=== PATIENT | female | born 1955 | race Caucasian/White ===

== ENCOUNTER → 2019-06-18 | Outpatient (CLI) | payer MEDICARE, OTHER | LOC: COL.RAD 06:33 | DX: R10.13 Epigastric pain (principal) | CPT/HCPCS: A9541 ==

== ENCOUNTER → 2019-07-24 | Outpatient (CLI) | payer MEDICARE, OTHER | LOC: COL.RAD 07:00 | DX: K76.0 Fatty (change of) liver, not elsewhere classified (principal) ==

== ENCOUNTER → 2019-09-01 | Outpatient (CLI) | payer MEDICARE, OTHER | LOC: COL.RAD 09:49 | DX: K21.9 Gastro-esophageal reflux disease without esophagitis (principal) ==

== ENCOUNTER 2020-10-12 05:37 | Day surgery (SDC) | payer MEDICARE, OTHER ==
[~2020-10-12] VITALS: Ht 167.6 cm; Wt 67.7 kg
[2020-10-12] VITALS (12 sets, daily range): BP systolic 98–131; BP diastolic 52–70; PULSE 57–73; TEMP 97–98.8
[2020-10-12] MEDS ORDERED: TENORMIN 2525 MG/TAB PO (06:02)
[2020-10-12] MEDS ORDERED: AMITRIPTYLINE H10 M1 PO (06:04)
--- NOTE | 2020-10-12 06:45 | NUR ---
Dr. Womack was notified that the patient does not have an H&P on their chart for surgery. He verbalized understanding of the information given and will print one to bring in for surgery.
[2020-10-12] MEDS ORDERED: COLACE 100100 MG/CAP PO (07:35)
[2020-10-12] MEDS ORDERED: NORCO 325 MG-51 TAB PO (07:36)
--- NOTE | 2020-10-12 11:20 | NUR ---
PATIENT ADMITED INTO ROOM 328 POST OP. ORIENTED BUT VERY DROWSY. VSS. NO C/O PAIN OR NAUSEA. ABD LAP SITES X5 ARE CD&I. ABD IS ROUND, SOFT, AND WITH POSITIVE BOWL SOUNDS. MALIK TO DD. MESH PANTIES & JOSE PAD INPLACE. IV FLUIDS INFUSING INTO LEFT HAND IV. HEAD TO TOE ASSESSMENT COMPLETE. SCD'S TO BLE. CALL LIGHT IN REACH. PATIENT SLEEPING.
--- NOTE | 2020-10-12 17:12 | NUR ---
Patient has been having complaints of dizziness since coming back from surgery. Nursing staff encouraging patient to rest, lay down and increase PO intake. Patient A&Ox3. VSS, post op VS monitored. Reported pain in abdomen, no pain medication requested. SCD bilateral legs. Lap sites CDI. No further needs expressed from the patient. Will continue to monitor for increased dizziness. Call light within reach
--- NOTE | 2020-10-12 21:00 | NUR ---
PT AMB IN [place] WITH MASK IN PLACE. ERAS PROCESS. ES TYLENOL GIVEN. VOIDING. IV SITE WRAPPED IN [place]. PT RELATES SHE IS RESTLESS AT HS. REPOSITIONS SELF FREQUENTLY. VSS. NO DRAINAGE FROM LP SITES. PAIN UNDER CONTROL. CALL LIGHT IN REACH. BED ALARM SET. SCD'S ON.
--- NOTE | 2020-10-12 23:43 | NUR ---
DC'D IVF NOW. INT NEEDLE FLUSHES WELL. AMBULATED EARLIER IN [facility]VI W/ SALES OPERATIONS SPECIALIST. USING IS WELL.
--- NOTE | 2020-10-13 02:30 | NUR ---
PT AWAKE. PT RELATED HEARD VOICES SHE THOUGHT IT WAS HER FAMILY. WENT TO DOOR. REALIZED SHE WAS IN THE HOSPITAL. TOOK HER A FEW MINUTES TO FIGURE IT OUT. WENT BACK TO BED. BED ALARM RESET. REMINDED PT TO CALL FOR ASSIST D/T MALIK CATHETER. PT AGREED. CALL LIGHT IN REACH.
[2020-10-13 04:01] VITALS: BP 116/58; PULSE 56; TEMP 97.9
--- NOTE | 2020-10-13 04:52 | NUR ---
PT RESTING. NO EVIDNECE OF PAIN.
[2020-10-13 07:55] VITALS: BP 97/62; PULSE 64; TEMP 98.1
--- NOTE | 2020-10-13 08:00 | NUR ---
PT A&O. VSS. HEAD TO TOE ASSESSMENT DONE, SEE NOTES. 5 ABDOMINAL SITES CD&I, NO DRESSING. PT MALIK IN PLACE PRODUCING CLEAR YELLOW URINE, MESH PANTIES AND PERIPAD IN PLACE. PT REPORTS PAIN, GAVE PRN NARCOTICS. ANSWERED ALL QUESTIONS. NO OTHER COMPLAINTS. PT SITTING IN BED. CALL LIGHT IN REACH.
--- NOTE | 2020-10-13 09:30 | NUR ---
DC'D MALIK PER ORDERS. NOTED 700CC OF CLEAR YELLOW URINE. NOTED SMALL VAGINAL DRAINAGE ON JOSE PAD THAT WAS DARK BROWN. PLACED NEW JOSE PAD WITH MESH PANTIES. PATIENT NOW WALKING IN THE HALLS.
--- NOTE | 2020-10-13 11:21 | NUR ---
KACIE met with the patient to discuss discharge plan. The patient lives outside of [place] with her , Sher (ph#[phone]). She reports independence with ADLs and does not have any DME. The patient's PCP is Dr. Niharika Jackson and she receives her medications from [facility] in [place]. She reports no difficulties obtaining her meds. The patient does not have a DPOA-HC in EMR, but she states that she does have one completed and that her is her DPOA-HC. The patient plans to return home with her upon discharge today. No additional needs at this time.
--- NOTE | 2020-10-13 11:56 | NUR ---
First visit from the patient service associate. No needs right now.
--- NOTE | 2020-10-13 12:00 | NUR ---
PATIENT HAS AMBULATED IN HALLS A COUPLE MORE TIMES. PATIENT TOLERATING ACTIVITY. PATIENT PLANNING TO DISCHARGE HOME LATER TODAY.
--- NOTE | 2020-10-13 15:00 | NUR ---
PATIENT DISCHARGING HOME VIA WC TO PERSONAL VEHICLE WHERE FAMILY IS WAITING. GAVE DISCHARGE INSTRUCTIONS AND DISCUSSED F/U APT. ANSWERED ALL QUESTIONS/CONCERNS. STUDENT NURSE DC'D IV, COVERED SITE WITH JOANN. PATIENT DISCHARGED.
== END 2020-10-13 15:00 | disposition home or self-care (01) ==
LOC: SDCO 05:37 → JCC 11:15 → SDCO 10-13 15:00
DX: N81.10 Cystocele, unspecified (principal); M19.90 Unspecified osteoarthritis, unspecified site; N80.9 Endometriosis, unspecified; K21.9 Gastro-esophageal reflux disease without esophagitis; I10 Essential (primary) hypertension; E78.2 Mixed hyperlipidemia; N39.0 Urinary tract infection, site not specified; Z90.710 Acquired absence of both cervix and uterus; Z88.0 Allergy status to penicillin; Z88.8 Allergy status to other drugs, medicaments and biological substances; Z96.651 Presence of right artificial knee joint
CPT/HCPCS: OP; A4314; A9284; C1781; J1100; J1885; J2250; J2370; J2405; J2704; J2765; J3010; J7060; J7120